=== PATIENT | female | born 1960 | race Caucasian/White ===

== ENCOUNTER 2017-03-20 07:19 | Emergency (ER) | payer OTHER ==
--- NOTE | 2017-03-20 07:25 | UC ---
Back Pain HPI - HPI Summary HPI Summary: 57 year old female presents with back pain. - History of Current Complaint Stated Complaint: BACK PAIN Time Seen by Provider: 03/20/17 07:21 - Allergies/Home Medications Allergies/Adverse Reactions: Allergies Allergy/AdvReac Type Severity Reaction Status Date / Time No Known Allergies Allergy Verified 03/20/17 07:27 Home Medications: Home Medications Ibuprofen [Advil] 800 mg PO Q6H PRN 03/20/17 [History Confirmed 03/20/17] Lisinopril [Zestril 5 MG-] 5 mg PO DAILY 03/20/17 [History Confirmed 03/20/17] Propranolol HCl 160 mg PO DAILY 03/20/17 [History Confirmed 03/20/17] PMH/Surg Hx/FS Hx/Imm Hx - Surgical History Surgical History: Yes Surgery Procedure, Year, and Place: 1986 , 01/12 [facility] [place]- removal of mole/ cyst (left) eye - Social History Alcohol Use: Occasionally Substance Use Type: None Smoking Status (MU): Never Smoked Tobacco Review of Systems Constitutional: Negative Skin: Negative Eyes: Negative ENT: Negative Respiratory: Negative Cardiovascular: Negative Gastrointestinal: Negative Genitourinary: Negative Motor: Negative Neurovascular: Negative Musculoskeletal: Other: - low back pain Neurological: Negative Psychological: Negative All Other Systems Reviewed And Are Negative: Yes Physical Exam Triage Information Reviewed: Yes Eye Exam: Normal ENT Exam: Normal Dental Exam: Normal Neck exam: Normal Neck: Positive: 1 Respiratory Exam: Normal Cardiovascular Exam: Normal Abdominal Exam: Normal Musculoskeletal: Positive: Other: - right si joint pain right lower back pain Neurological Exam: Normal Psychological Exam: Normal Skin Exam: Normal Back Pain Course/Dx - Differential Dx/Diagnosis Provider Diagnoses: right si joint inflammation Discharge - Discharge Plan Condition: Stable Disposition: HOME Prescriptions: Meloxicam [Mobic] 7.5 mg PO BID PC #30 tab Methocarbamol TAB* [Robaxin 500 MG TAB*] 500 mg PO TID PRN #30 tab PRN Reason: Spasms - Back Patient Education Materials: Acute Low Back Pain (ED) Referrals: Giovanna Del Valle MD [Primary Care Provider] - If Needed
[2017-03-20 07:37] VITALS: BP 140/90
== END 2017-03-20 07:42 | disposition home or self-care (01) ==
LOC: UCEAST 07:19
DX: M46.1 Sacroiliitis, not elsewhere classified (principal)
CPT/HCPCS: 99212; G0463

== ENCOUNTER 2017-08-23 07:06 | Emergency (ER) | payer OTHER ==
[2017-08-23 07:23] VITALS: BP 148/84
--- NOTE | 2017-08-23 08:05 | UC ---
Respiratory Complaint HPI - HPI Summary HPI Summary: 57 yo female with sinus pressure and pain as well as post nasal drip x 2-3 weeks no f/c no with cough/wheezing and laryngitis x days no CP or sob has had bronchitis in past and used inhalers - History of Current Complaint Chief Complaint: UCGeneralIllness Stated Complaint: SINUS ISSUE Time Seen by Provider: 08/23/17 07:53 Hx Obtained From: Patient Onset/Duration: Sudden Onset, Lasting Weeks Timing: Constant Severity Initially: Mild Severity Currently: Moderate Pain Intensity: 4 Pain Scale Used: 0-10 Numeric Character: Cough: Productive Aggravating Factors: Exertion, Deep Breaths, Recumbent Position Alleviating Factors: Nothing Associated Signs And Symptoms: Positive: Wheezing, Nasal Congestion, Hoarseness , Sinus Discomfort Related History: Similar Episode/Dx as: - bronchitis - Allergies/Home Medications Allergies/Adverse Reactions: Allergies Allergy/AdvReac Type Severity Reaction Status Date / Time No Known Allergies Allergy Verified 08/23/17 07:23 PMH/Surg Hx/FS Hx/Imm Hx Previously Healthy: Yes Cardiovascular History: Hypertension Respiratory History: Bronchitis - Surgical History Surgical History: Yes Surgery Procedure, Year, and Place: 1986 , 01/12 [facility] [place]- removal of mole/ cyst (left) eye - Family History Known Family History: Positive: Hypertension - Social History Alcohol Use: Occasionally Substance Use Type: None Smoking Status (MU): Never Smoked Tobacco - Immunization History Most Recent Influenza Vaccination: UTD Review of Systems Constitutional: Negative Skin: Negative Eyes: Negative ENT: Nasal Discharge, Sinus Congestion, Sinus Pain/Tenderness Respiratory: Cough Cardiovascular: Negative Gastrointestinal: Negative Genitourinary: Negative Motor: Negative Neurovascular: Negative Musculoskeletal: Negative Neurological: Negative Psychological: Negative Is Patient Immunocompromised?: No All Other Systems Reviewed And Are Negative: Yes Physical Exam Triage Information Reviewed: Yes Appearance: Well-Appearing, No Pain Distress, Well-Nourished Vital Signs: Initial Vital Signs Temp 98.6 F 08/23/17 07:19 Pulse 83 08/23/17 07:19 BP 148/84 08/23/17 07:19 Pulse Ox 97 08/23/17 07:19 Eyes: Positive: Conjunctiva Clear ENT: Positive: Hearing grossly normal, Pharynx normal, Nasal congestion, Nasal drainage, TMs normal, Hoarse voice, Sinus tenderness - Rmax>L max, Uvula midline. Negative: Tonsillar swelling, Tonsillar exudate, Muffled voice Neck: Positive: Supple, Nontender, No Lymphadenopathy Respiratory: Positive: No respiratory distress, No accessory muscle use, Wheezing - with forced expiration Cardiovascular: Positive: RRR, No Murmur, Pulses Normal Musculoskeletal: Positive: ROM Intact, No Edema Neurological: Positive: Alert, Muscle Tone Normal Psychological Exam: Normal Skin Exam: Normal UC Diagnostic Evaluation - Laboratory O2 Sat by Pulse Oximetry: 97 - normal/not hypoxic Respiratory Course/Dx - Differential Dx/Diagnosis Provider Diagnoses: acute bronchitis/acute sinusitis Discharge - Discharge Plan Condition: Stable Disposition: HOME Patient Education Materials: Sinusitis (ED), Acute Bronchitis (ED) Referrals: Giovanna Del Valle MD [Primary Care Provider] - 5 Days (if not better) Additional Instructions: recheck for new or worsening symptoms
[2017-08-23] MEDS: predniSONE TAB* 20 MG PO ONE (08:12)
[2017-08-23] MEDS: Albuterol HFA INHALER* 8 gm MDI INH ONE (08:16)
== END 2017-08-23 08:24 | disposition home or self-care (01) ==
LOC: UCEAST 07:06
DX: J20.9 Acute bronchitis, unspecified (principal); J01.90 Acute sinusitis, unspecified
CPT/HCPCS: 99213; A9270-GY; G0463; J7512